=== PATIENT | male | born 1995 | race Caucasian/White ===

== ENCOUNTER 2020-10-12 01:56 | Emergency (ER) | payer OTHER ==
[~2020-10-12] VITALS: Ht 162.6 cm; Wt 72.6 kg
--- NOTE | 2020-10-12 02:18 | NUR ---
BIBSELF FROM HOME C/O GENERALIZED REDNESS W/ ITCHY SINCE 1999 OF LAST NIGHT. AFTER EATING WHEAT PIZZA. PT C/O N/V X2 AT HOME. PT A/OX4. TOLERATING ROOM AIR WELL, DENIES SOB
--- NOTE | 2020-10-12 02:20 | NUR ---
PT CONNECT TO POX AND TELE MONITOR. ON R/A. VSS
[2020-10-12] MEDS ORDERED: diphenhydrAMINE HCL 50 MG/ML VIAL ONE (02:27)
[2020-10-12] MEDS ORDERED: methylPREDNISolone SOD SUCC 125 MG/2ML VIAL ONE (02:27)
[2020-10-12] MEDS ORDERED: FAMOTIDINE/PF INJ 20 MG/2 ML VIAL IV ONE ×2 (02:28→02:30)
[2020-10-12] MEDS ORDERED: IV NS 0.9% 1,000 ML BAG IV ONE (02:30)
[2020-10-12] MEDS ORDERED: methylPREDNISolone SOD SUCC 125 MG/2ML VIAL IV ONE (02:30)
[2020-10-12] MEDS ORDERED: diphenhydrAMINE HCL 50 MG/ML VIAL IV ONE (02:30)
--- NOTE | 2020-10-12 02:30 | NUR ---
ADDENDUM: Intravenous End Time Documentation: Normal saline 1 liter (IV-WO) : start time: 0230 am ; end time: 0330 am : IV site: LAC PIV # 20 Port # 1
--- NOTE | 2020-10-12 02:42 | NUR ---
INITIATED LAC #20G BLOODWORK DRAWN AND SENT TO LAB
[2020-10-12] MEDS ORDERED: ONDANSETRON HCL/PF 4 MG/2 ML VIAL ONE (02:44)
--- NOTE | 2020-10-12 02:48 | NUR ---
PT EMESIS X1. ADMINISTERED ZOFRAN; WILL REASSESS FOR N/V IN 30 MINUTES
--- NOTE | 2020-10-12 02:55 | NUR ---
EMESIS STOPPED. PT DENIES N/V AFTER ADMINISTRATION OF ZOFRAN. LESS REDDNESS TO GENERAL SKIN COLOR NOTED. ON R/A; DENIES SOB
[2020-10-12] MEDS ORDERED: PRED50TA PO (02:57)
[2020-10-12] MEDS ORDERED: ONDANSETRON HCL/PF 4 MG/2 ML VIAL IV ONE (03:00)
--- NOTE | 2020-10-12 03:50 | NUR ---
Patient discharged to home in stable condition. RX Written and verbal after care instructions given. Patient verbalizes understanding of instruction. PT AMBULATORY TOLERATING R/A WELL.
[2020-10-12 03:51] VITALS: BP 118/70
== END 2020-10-12 03:50 | disposition home or self-care (01) ==
LOC: ER 01:56
DX: L50.9 Urticaria, unspecified (principal); Z79.899 Other long term (current) drug therapy
CPT/HCPCS: 96361; 96374; 96375; 99284; J1200; J2405; J2930; J3490; J7030